=== PATIENT | female | born 1945 | race Caucasian/White ===

== ENCOUNTER 2016-10-06 10:27 | Outpatient (CLI) | payer MEDICARE, OTHER ==
[2016-10-06 11:13] LABS: eGFR (African) > 60; eGFR (Non-African) > 60
== END 2016-10-06 10:30 ==
LOC: LAB 10:27
PROVIDERS: ATTEND Family Medicine
DX: I10 Essential (primary) hypertension (principal)
CPT/HCPCS: 36415; 80053; 80061

== ENCOUNTER 2017-10-05 10:02 | Outpatient (CLI) | payer MEDICARE, OTHER ==
[2017-10-05 10:51] LABS: eGFR (African) > 60; eGFR (Non-African) > 60
== END 2017-10-05 10:03 ==
LOC: LAB 10:02
PROVIDERS: ATTEND Family Medicine
DX: I10 Essential (primary) hypertension (principal)
CPT/HCPCS: 36415; 80053; 80061

== ENCOUNTER 2018-10-04 10:04 | Outpatient (CLI) | payer MEDICARE, OTHER ==
[2018-10-04 10:39] LABS: eGFR (Non-African) > 60
== END 2018-10-04 10:06 ==
LOC: LAB 10:04
PROVIDERS: ATTEND Family Medicine
DX: I10 Essential (primary) hypertension (principal)
CPT/HCPCS: 36415; 80053